=== PATIENT | male | born 1990 | race Two or more races ===

== ENCOUNTER 2021-06-26 14:19 | Emergency (ER) | payer OTHER ==
[~2021-06-26] VITALS: Ht 167.6 cm; Wt 77.1 kg
[2021-06-26 14:29] VITALS: BP 121/78
--- NOTE | 2021-06-26 14:30 | NUR ---
TO ER BED 13, BIB RA C/O ABD PAIN AND BULGING WHILE BENDING DOWN TO TIE SHOE, "BIOPSY WAS DONE FEW MONTHS AGO, BUT NO FINDING", AAOX3, BREATHING EVEN AND NON LABORED, AWAITING MD DURANT
--- NOTE | 2021-06-26 15:30 | NUR ---
Patient discharged to home in stable condition. Written and verbal after care instructions given. Patient verbalizes understanding of instruction. Refused to sign discharge papers
== END 2021-06-26 15:33 | disposition home or self-care (01) ==
LOC: ER 14:26
DX: R19.00 Intra-abdominal and pelvic swelling, mass and lump, unspecified site (principal)